=== PATIENT | female | born 1935 | race Caucasian/White ===

== ENCOUNTER 2017-12-22 15:04 | Emergency (ER) | payer MEDICARE ==
[~2017-12-22] VITALS: Ht 162.6 cm; Wt 69.9 kg
[~2017-12-22 15:04] MED LIST: AMBIEN10 MG PO; ASACOL400 MG PO; ASPIRIN81 M1 PO; CALCIUM600 MG PO; CHOLESTYRAMINE L4 GM PO; CLARITIN10 M2 PO; DICYCLOMINE HCL10 MG PO; FLAGYL500 MG PO; LEVOTHYROXINE50 MCG PO; LEXAPRO20 MG PO; LIALDA1.2 GM PO; LIBRAX CAPSULE1 EACH PO; NEXIUM40 MG PO; NIFEDIPINE ER30 M1 PO; PANTOPRAZOLE SO20 MG PO; PRESERVISION T1 EACH PO; RANITIDINE HCL300 MG PO; SIMVASTATIN40 MG PO; SUCRALFATE1 GM PO; TOPROL XL50 MG PO; TRIAMTERENE-HCTZ1 EA PO; TRICOR145 MG PO; VANCOCIN HCL250 MG PO; VITAMIN B-121000 MCG PO; [UNRECOGNIZED DRUG - OTHER] PO
[2017-12-22 17:14] LABS: BILIRUBIN,URINE 1+ (NEGATIVE); CLARITY,URINE CLOUDY (CLEAR); COLOR,URINE YELLOW (YELLOW); KETONES,URINE NEGATIVE (NEGATIVE); LEUKOCYTE ESTERASE ,URINE 2+ (NEGATIVE); NITRITE,URINE NEGATIVE (NEGATIVE); PROTEIN,URINE DIPSTICK 2+ (NEGATIVE); URINE UROBILINOGEN 1 mg/dL (0.2 - 1)
[2017-12-22 17:29] LABS: BACTERIA,URINE MANY /HPF; EPITHELIAL CELLS,URINE MANY /LPF; RBC,URINE 21-50 /HPF (0-5); WBC,URINE (MAN) >50 /HPF (0-5)
[2017-12-22] MEDS ORDERED: KEFLEX500 MG PO (17:51)
== END 2017-12-22 18:11 | disposition home or self-care (01) ==
LOC: ER 15:04
DX: R30.0 Dysuria (principal); N30.90 Cystitis, unspecified without hematuria
CPT/HCPCS: 81001; 87086; 87186; 99283

== ENCOUNTER → 2018-01-31 | Outpatient (CLI) | payer MEDICARE ==
[~2018-01-31] MED LIST changes: +KEFLEX500 MG PO; +SUGAMMADEX SODIUM 200 MG/2 ML VIAL IV ONE
--- NOTE | 2018-01-31 16:26 | Diagnostic Imaging Report ---
Renal ultrasound dated 01/31/2018. History: Urinary tract infection Discussion: Transverse and longitudinal images of the kidneys were obtained demonstrating normal renal sizes and echogenicities. There is no evidence of hydronephrosis, mass, or renal calculus. The right kidney measures 8.5 x 4.5 x 4.1 cm and the left kidney measures 9.0 x 4.7 x 4.6 cm. Right renal cortex measures 1.3 cm and the left renal cortex measures 1.4 cm. There is a lower pole left renal cyst measuring 1.8 x 1.3 x 1.5 cm. The urinary bladder is unremarkable with an estimated prevoid volume of 66.9 cc. There is no evidence of free fluid. IMPRESSION: 1. Small kidneys without evidence of hydronephrosis. 2. Small lower pole left renal cyst. Signed by: Dr. Kirit Loyola DO on 01/31/2018 4:22 PM
--- NOTE | 2018-01-31 16:33 | Diagnostic Imaging Report ---
Abdomen, 2 views dated 01/31/2018. History: Urinary tract infection. Findings: The intestinal gas pattern is nonobstructive. There no masses or abnormal calcifications. Degenerative changes of the spine. IMPRESSION: No acute abdominal abnormality. Signed by: Dr. Kirit Loyola DO on 01/31/2018 4:30 PM
== END ==
LOC: US 14:00
PROVIDERS: ATTEND Urology
DX: N39.0 Urinary tract infection, site not specified (principal)
CPT/HCPCS: 74018; 76770

== ENCOUNTER 2018-06-01 15:12 | Emergency (ER) | payer MEDICARE ==
[~2018-06-01] VITALS: Ht 162.6 cm; Wt 74.8 kg
[~2018-06-01 15:12] MED LIST changes: -SUGAMMADEX SODIUM 200 MG/2 ML VIAL IV ONE
--- OUTSIDE RECORDS SUMMARY | 2018-06-01 15:16 | XMS REPORT | Continuity of Care Document ---
Author Author [facility] Interface Address Unknown Phone Unavailable Problems Problem Status Onset Date Classification Date Reported Comments Source Body mass index 25-29 - overweight 03/19/2018 Diagnosis 03/19/2018 [facility] Dysfunction of eustachian tube 03/19/2018 Diagnosis 03/19/2018 [facility] Postviral cough 03/19/2018 Diagnosis 03/19/2018 [facility] Acute Sinusitis Problem 03/19/2018 [facility] UTI Active Problem 12/22/2017 [facility] Medications Medication Details Route Status Patient Instructions Ordering Provider Order Date Source Cephalexin Monohydrate (Keflex) 500 Mg Capsule Every 6 Hours Active [facility] 12/22/2017 [facility] Cyanocobalamin (Vitamin B-12) 1,000 Mcg Tab, 1000 Mcg Oral Daily Active 08/31/2016 [facility] Pantoprazole Sodium 20 Mg Tablet.dr, 40 Mg Oral Daily Active 08/31/2016 [facility] Cholestyramine (Cholestyramine Light Packet) 4 Gm Pack Every 12 Hours Active [facility] 07/24/2016 [facility] Nifedipine (Nifedipine Er) 30 Mg Tab.er.24 Every 12 Hours Active [facility] 07/24/2016 [facility] Metronidazole (Flagyl) 500 Mg Tablet, 500 Mg Oral Every 8 Hours Active [facility] 07/24/2016 [facility] Vancomycin Hcl (Vancocin Hcl) 250 Mg Capsule, 250 Mg Oral Every 6 Hours Active [facility] 07/24/2016 [facility] Loratadine (Claritin) 10 Mg Capsule, 10 Mg Oral Daily Active 07/18/2016 [facility] Sucralfate 1 Gm Tablet, 1 Gm Oral Three Times A Day Active 07/18/2016 [facility] Sucralfate 1 Gm Tablet, 1 Gm Oral Three Times A Day Active 07/18/2016 [facility] Mesalamine (Asacol) 400 Mg Tablet.dr, 800 Mg Oral Three Times A Day Active 03/13/2015 [facility] Arthrotec Arthrotec 75 Active [facility] Asacol Asacol Active [facility] aspirin aspirin Active [facility] benzonatate 200 MG Oral Capsule benzonatate 200 mg capsule Take 1 capsule 3 times a day by oral route as needed. Active [facility] 12 HR Bupropion Hydrochloride 150 MG Extended Release Oral Tablet bupropion HCl SR 150 mg tablet,12 hr sustained-release Active [facility] calcium calcium Active [facility] Cephalexin 500 MG Oral Capsule cephalexin 500 mg capsule Active [facility] Chlordiazepoxide Hydrochloride 5 MG / Clidinium bromide 2.5 MG Oral Capsule chlordiazepoxide-clidinium 5 mg-2.5 mg capsule Active [facility] Ciprofloxacin 250 MG Oral Tablet ciprofloxacin 250 mg tablet Active [facility] Claritin Claritin Active [facility] Betamethasone 0.5 MG/ML / Clotrimazole 10 MG/ML Topical Cream clotrimazole-betamethasone 1 %-0.05 % topical cream Active [facility] Desonide 0.5 MG/ML Topical Cream desonide 0.05 % topical cream Active [facility] Bentyl dicyclomine Active [facility] Dicyclomine Hydrochloride 20 MG Oral Tablet dicyclomine 20 mg tablet Active [facility] Escitalopram 20 MG Oral Tablet escitalopram 20 mg tablet Active [facility] Fenofibrate 160 MG Oral Tablet fenofibrate 160 mg tablet Active [facility] flunisolide 0.025 MG/ACTUAT Metered Dose Nasal [place] flunisolide 25 mcg (0.025 %) nasal spray Inhale 1-2 sprays in each nostril 1-2 times per day for 3 days then prn nasal congestion Active [facility] Fluticasone propionate 0.05 MG/ACTUAT Metered Dose Nasal [place] fluticasone 50 mcg/actuation nasal spray,suspension [place] 1 spray every day by intranasal route. Active [facility] levothyroxine levothyroxine Active [facility] Levothyroxine Sodium 0.05 MG Oral Tablet levothyroxine 50 mcg tablet Active [facility] Lexapro Lexapro Active [facility] Librax Librax (with clidinium) Active [facility] mesalamine 1200 MG Delayed Release Oral Tablet mesalamine 1.2 gram tablet,delayed release Active [facility] metoprolol succinate metoprolol succinate Active [facility] 24 HR metoprolol succinate 50 MG Extended Release Oral Tablet metoprolol succinate ER 50 mg tablet,extended release 24 hr Active [facility] Miralax Miralax Active [facility] 24 HR mirabegron 50 MG Extended Release Oral Tablet [Myrbetriq] Myrbetriq 50 mg tablet,extended release Active [facility] Nasonex Nasonex Active [facility] Nexium Nexium Active [facility] NITROFURANTOIN, MACROCRYSTALS 100 MG Oral Capsule nitrofurantoin macrocrystal 100 mg capsule Active [facility] NITROFURANTOIN, MACROCRYSTALS 25 MG / Nitrofurantoin, Monohydrate 75 MG Oral Capsule nitrofurantoin monohydrate/macrocrystals 100 mg capsule Active [facility] olopatadine 2 MG/ML Ophthalmic Solution olopatadine 0.2 % eye drops INSTILL 1 DROP IN BOTH EYES DAILY Active [facility] Albuterol 0.09 MG/ACTUAT Metered Dose Inhaler ProAir HFA 90 mcg/actuation aerosol inhaler TAKE 2 PUFFS BY MOUTH EVERY 4 HOURS NEEDED Active [facility] Probiotic Formula Probiotic Formula Active [facility] Ranitidine 150 MG Oral Tablet ranitidine 150 mg tablet Active [facility] simvastatin simvastatin Active [facility] Simvastatin 40 MG Oral Tablet simvastatin 40 mg tablet Active [facility] Carafate sucralfate Active [facility] Sulfamethoxazole 400 MG / Trimethoprim 80 MG Oral Tablet sulfamethoxazole 400 mg-trimethoprim 80 mg tablet Active [facility] tramadol hydrochloride 50 MG Oral Tablet tramadol 50 mg tablet Active [facility] Hydrochlorothiazide 25 MG / Triamterene 37.5 MG Oral Capsule triamterene 37.5 mg-hydrochlorothiazide 25 mg capsule Active [facility] Hydrochlorothiazide 25 MG / Triamterene 37.5 MG Oral Tablet triamterene 37.5 mg-hydrochlorothiazide 25 mg tablet Active [facility] Tricor Tricor Active [facility] Ergocalciferol 67987 UNT Oral Capsule Vitamin D2 50,000 unit capsule Active [facility] Aspirin 81 Mg Tablet Daily Active [facility] Beta Carotene (Preservision Tablet) 1 Each Tab Daily Active [facility] Calcium Carbonate (Calcium) 600 Mg Tablet Daily Active [facility] Chlordiazepoxide/Clidinium Br (Librax Capsule) 1 Each Capsule As Needed Active [facility] Dicyclomine Hcl 10 Mg Capsule Twice A Day Active [facility] Escitalopram Oxalate (Lexapro) 20 Mg Tablet Daily Active [facility] Esomeprazole Magnesium (Nexium) 40 Mg Capsule.dr Daily Active [facility] Fenofibrate (Tricor) 145 Mg Tab Daily Active [facility] Gasex Three Times A Day Active [facility] Levothyroxine Sodium 50 Mcg Tablet Daily Active [facility] Mesalamine (Lialda) 1.2 Gm Tablet. Four Times Daily Active [facility] Metoprolol Succinate (Toprol Xl) 50 Mg Tab.er.24h Daily Active [facility] Ranitidine Hcl 300 Mg Tablet Bedtime Active [facility] Simvastatin 40 Mg Tablet Daily Active [facility] Triamterene/Hctz (Triamterene-Hctz 37.5-25 Mg Tb) 1 Ea Tab Daily Active [facility] Zolpidem Tartrate (Ambien) 10 Mg Tablet Bedtime as needed for Insomnia Active [facility] Allergies, Adverse Reactions, Alerts Substance Category Reaction Severity Reaction type Status Date Reported Comments Source Levaquin Allergy to substance 03/15/2009 [facility] Zestril Allergy to substance 03/15/2009 [facility] Iodine RASH Unknown Allergy to Substance Active 12/22/2017 [facility] Lisinopril HIVES Unknown Allergy to Substance Active 12/22/2017 [facility] Levofloxacin SWOLLEN LIPS Unknown Allergy to Substance Active 12/22/2017 [facility] Immunizations Immunization Date Given Site Status Last Updated Comments Source Results Order Name Results Value Reference Range Date Interpretation Comments Source Automated urine sediment leukocyte count by microscopy (number/high power field) Automated urine sediment leukocyte count by microscopy (number/high power field) null 0 - 5 12/22/2017 [facility] Bacteria detection in urine sediment by light microscopy Bacteria detection in urine sediment by light microscopy MANY NONE 12/22/2017 [facility] Epithelial cells detection in urine sediment by light microscopy Epithelial cells detection in urine sediment by light microscopy MANY NONE 12/22/2017 [facility] Erythrocytes detection in urine sediment by light microscopy Erythrocytes detection in urine sediment by light microscopy null 0 - 5 12/22/2017 [facility] Specific gravity of Urine by Test strip Specific gravity of Urine by Test strip 1.025 1.010 - 1.025 12/22/2017 [facility] Urine clarity Urine clarity CLOUDY CLEAR 12/22/2017 [facility] Urine color determination Urine color determination YELLOW YELLOW 12/22/2017 [facility] Urine erythrocytes detection Urine erythrocytes detection 4+ NEGATIVE 12/22/2017 [facility] Urine glucose detection Urine glucose detection NEGATIVE NEGATIVE 12/22/2017 [facility] Urine ketones detection by automated test strip Urine ketones detection by automated test strip NEGATIVE NEGATIVE 12/22/2017 [facility] Urine leukocyte esterase detection by dipstick Urine leukocyte esterase detection by dipstick 2+ NEGATIVE 12/22/2017 [facility] Urine nitrite detection Urine nitrite detection NEGATIVE NEGATIVE 12/22/2017 [facility] Urine pH measurement by automated test strip Urine pH measurement by automated test strip 6 5 - 7 12/22/2017 [facility] Urine protein measurement by test strip (mass/volume) Urine protein measurement by test strip (mass/volume) 2+ NEGATIVE 12/22/2017 [facility] Urine total bilirubin measurement (mass/volume) Urine total bilirubin measurement (mass/volume) 1+ NEGATIVE 12/22/2017 [facility] Urine urobilinogen measurement by test strip (mass/volume) Urine urobilinogen measurement by test strip (mass/volume) 1 0.2 - 1 12/22/2017 [facility] Vital Signs Vital Sign Value Date Comments Source Diastolic (mm Hg) 74 03/19/2018 [facility] Height 64 03/19/2018 [facility] Systolic (mm Hg) 112 03/19/2018 [facility] Weight 165 03/19/2018 [facility] Encounters Location Location Details Encounter Type Encounter Number Reason For Visit Attending Provider ADM Date DC Date Status Source Departed Emergency Room [id number] MARCELL MEJÍA MD 12/22/2017 12/22/2017 [facility] [place] - [facility] - [id number] Dempsey, MARIAMA-C: [address] [place] [address], Ph. [id number] Yue Dempsey 03/19/2018 [facility] Procedures Procedure Code Date Perfomer Comments Source
--- OUTSIDE RECORDS SUMMARY | 2018-06-01 15:16 | XMS REPORT | Encounter Summary ---
Author Organization Unknown Address [address] [place] [id number] Phone [phone] Care Team Providers Care Respiratory Therapist Name Role Phone [facility] 3 [phone] Reason for Visit Medical Complaint Instructions 1. Postviral cough benzonatate 200 mg capsule cough: care instructions viral respiratory infection: care instructions 2. Dysfunction of eustachian tube eustachian tube problems: care instructions fluticasone 50 mcg/actuation nasal spray,suspension 3. Body mass index 25-29 - overweight learning about healthy weight Discussion Note: None recorded. Plan of Care Patient Instructions The eustachian (say "jna-[id number]-[id number]") tubes run between the inside of the ears and the throat. They keep air pressure stable in the ears. If your eustachian tubes become blocked, the air pressure in your ears changes. The fluids from a cold can clog eustachian tubes, causing pain in the ears. A quick change in air pressure can cause eustachian tubes to close up. This might happen when an airplane changes altitude or when a router operator radial goes up or down underwater. Eustachian tube problems often clear up on their own or after antibiotic treatment. If your tubes continue to be blocked, you may need surgery. Follow-up care is a mckinney part of your treatment and safety. Be sure to make and go to all appointments, and call your doctor if you are having problems. It's also a good idea to know your test results and keep a list of the medicines you take. How can you care for yourself at home? To ease ear pain, apply a warm washcloth or a heating pad set on low. There may be some drainage from the ear when the heat melts earwax. Put a cloth between the heat source and your skin. Do not use a heating pad with children. If your doctor prescribed antibiotics, take them as directed. Do not stop taking them just because you feel better. You need to take the full course of antibiotics. Your doctor may recommend cauy-[id number] medicine. Be safe with medicines. Oral or nasal decongestants may relieve ear pain. Avoid decongestants that are combined with antihistamines, which tend to cause more blockage. But if allergies seem to be the problem, your doctor may recommend a combination. Be careful with cough and cold medicines. Don't give them to children younger than 6, because they don't work for children that age and can even be harmful. For children 6 and older, always follow all the instructions carefully. Make sure you know how much medicine to give and how long to use it. And use the dosing device if one is included. When should you call for help? Call your doctor now or seek immediate medical care if: You develop sudden, complete hearing loss. You have severe pain or feel dizzy. You have new or increasing pus or blood draining from your ear. You have redness, swelling, or pain around or behind the ear. Watch closely for changes in your health, and be sure to contact your doctor if: You do not get better after 2 weeks. You have any new symptoms, such as itching or a feeling of fullness in the ear. Reminders Provider Appointments None recorded. Lab None recorded. Referral None recorded. Procedures None recorded. Surgeries None recorded. Imaging None recorded. Medications Name Start Date Arthrotec 75 Asacol aspirin benzonatate 200 mg capsule Take 1 capsule 3 times a day by oral route as needed. bupropion HCl SR 150 mg tablet,12 hr sustained-release calcium cephalexin 500 mg capsule chlordiazepoxide-clidinium 5 mg-2.5 mg capsule ciprofloxacin 250 mg tablet Claritin clotrimazole-betamethasone 1 %-0.05 % topical cream desonide 0.05 % topical cream dicyclomine dicyclomine 20 mg tablet escitalopram 20 mg tablet fenofibrate 160 mg tablet flunisolide 25 mcg (0.025 %) nasal spray Inhale 1-2 sprays in each nostril 1-2 times per day for 3 days then prn nasal congestion fluticasone 50 mcg/actuation nasal spray,suspension [place] 1 spray every day by intranasal route. levothyroxine levothyroxine 50 mcg tablet Lexapro Librax (with clidinium) mesalamine 1.2 gram tablet,delayed release metoprolol succinate metoprolol succinate ER 50 mg tablet,extended release 24 hr Miralax Myrbetriq 50 mg tablet,extended release Nasonex Nexium nitrofurantoin macrocrystal 100 mg capsule nitrofurantoin monohydrate/macrocrystals 100 mg capsule olopatadine 0.2 % eye drops INSTILL 1 DROP IN BOTH EYES DAILY ProAir HFA 90 mcg/actuation aerosol inhaler TAKE 2 PUFFS BY MOUTH EVERY 4 HOURS NEEDED Probiotic Formula ranitidine 150 mg tablet simvastatin simvastatin 40 mg tablet sucralfate sulfamethoxazole 400 mg-trimethoprim 80 mg tablet tramadol 50 mg tablet triamterene 37.5 mg-hydrochlorothiazide 25 mg capsule triamterene 37.5 mg-hydrochlorothiazide 25 mg tablet Tricor Vitamin D2 50,000 unit capsule Medications Administered None recorded. Vitals Height Weight BMI Blood Pressure 5 ft 4 in 165 lbs 28.3 kg/m2 112/74 mm[Hg] Lab Results None recorded. Allergies Code Code System Name Reaction Severity Status Onset 5933 RxNorm Iodine Active 616755 RxNorm Levaquin Active 487753 RxNorm Zestril Active Problems Name Status Onset Date Source Acute Sinusitis Active Encounter Procedures None recorded. Vaccine List None recorded. Social History Smoking Status Never Smoker Past Encounters 03/19/2018 Postviral Cough; Dysfunction of Eustachian Tube; Body Mass Index 25-29 - Overweight Yue Dempsey [employer]-[facility]: [address] [place] [address], Ph. History of Present Illness Cough Reported By: Patient HPI: Location: chest. Quality: productive cough. Duration: 4 days. Severity: moderate. Onset/Timing: gradual. Context: no sick contacts, no foreign travel, non- smoker. Associated Symptoms: no sputum production, no shortness of breath, no wheezing, no sweats, no significant weight gain, no significant weight loss, no sore throat, no vomiting, no diarrhea, no rash, no nausea, no fever/chills, no muscle aches, no headache, morning cough Review of Systems:ROS as noted in the HPI Review of Systems Basic Reported By: Patient Physical Exam Adult Basic, Adult Female Complete Reported By: Patient Constitutional: General Appearance: healthy-appearing, well-nourished, well-developed. Level of Distress: NAD. Ambulation: ambulating normally Psychiatric: Mental Status: active and alert. Orientation: to time, to place, to person [id number]-[id number]-Wutjh-Throat: Ears: no lesions on external ear, no outer ear tenderness, EACs clear, TMs clear, middle ear fluid. Hearing: no hearing loss. Nose: no lesions on external nose, nares patent, no septal deviation, nasal passages clear, no sinus tenderness, no nasal discharge. Lips, Teeth, and Gums: no mouth or lip ulcers, no bleeding gums, normal dentition. Oropharynx: moist mucous membranes, no erythema, no exudates, tonsils not enlarged Lungs: Respiratory effort: no dyspnea, no tachypnea, no use of accessory muscles, no intercostal retractions. Auscultation: breath sounds normal Cardiovascular: Heart Auscultation: RRR, no murmurs
--- OUTSIDE RECORDS SUMMARY | 2018-06-01 15:16 | XMS REPORT | Encounter Summary ---
Author Organization Unknown Address [address] [place] [address] Phone [phone] Care Team Providers Care Stationary Steam Engineer Name Role Phone Dr. Angelita Vivas 3 [phone] Lacey Mcadams 62 [phone] Trent Medina MD 107 [phone] Cristian Abarca MD 111 [phone] Sandor Stinson MD 115 [phone] Reason for Visit Major depressive disorder; Hypothyroidism; Hyperlipidemia; Gastroesophageal reflux disease; Hypertensive disorder; Irritable bowel syndrome; Bilateral shoulder pain; cough / congestion Instructions 1. Upper respiratory infection Zithromax Z-Vinod 250 mg tablet 2. Allergic rhinitis montelukast 10 mg tablet Kenalog 40 mg/mL suspension for injection Cheratussin AC 10 mg-100 mg/5 mL oral liquid 3. Osteoarthritis tramadol 50 mg tablet handicap placard 4. Major depressive disorder 5. Irritable bowel syndrome 6. Gastroesophageal reflux disease ranitidine 150 mg tablet 7. Hypothyroidism 8. Hyperlipidemia high cholesterol: care instructions 9. Hypertensive disorder 10. Screening for osteoporosis bone density 11. Body mass index 25-29 - overweight learning about healthy weight 12. At risk for falls preventing falls: care instructions 13. Alcohol consumption screening learning about alcohol misuse 14. Alcohol intake above recommended sensible limits alcohol and drug problems: care instructions 15. Depression screening learning about depression Discussion Note: None recorded. Plan of Care Patient Goals Patient Target Alcohol intake None Handling Urges to drink Remind yourself of your reasons for making a change Talk it through with someone you trust Distract yourself with a healthy, alternative activity Challenge the thought that drives the urge Ride it out without giving in Leave high-risk situations quickly and gracefully Reminders Provider Appointments Return to Office on or around 08/24/2018 Gerardo Sher MD Lab None recorded. Referral None recorded. Procedures None recorded. Surgeries None recorded. Imaging Bone Density 05/23/2018 Medications Name Start Date Aspir-81 QD calcium TAKE ONE TABLET BY MOUTH TWICE A DAY Cheratussin AC 10 mg-100 mg/5 mL oral liquid Take 10 mL every 8 hours by oral route as needed for 5 days. chlordiazepoxide-clidinium 5 mg-2.5 mg capsule TAKE ONE CAPSULE BY MOUTH ONCE A DAY NEEDED Claritin QD clotrimazole-betamethasone 1 %-0.05 % topical cream APPLY TO THE AFFECTED AND SURROUNDING AREAS OF SKIN BY TOPICAL ROUTE 2 TIMES PER DAY IN THE MORNING AND EVENING FOR 2 WEEKS desonide 0.05 % topical cream APPLY SPARINGLY AND RUB GENTLY INTO THE AFFECTED AREA(S) BY TOPICAL ROUTE 2 TIMES PER DAY FOR 10 DAYS dicyclomine 20 mg tablet Take 1 tablet twice a day by oral route as directed for 90 days. escitalopram 20 mg tablet TAKE 1 TABLET BY MOUTH EVERY DAY fenofibrate 160 mg tablet TAKE 1 TABLET BY MOUTH EVERY DAY fluticasone propionate 50 mcg/actuation nasal spray,suspension Gas-X BID Kenalog 40 mg/mL suspension for injection Take 1 mL by injection route. levothyroxine 50 mcg tablet TAKE 1 TABLET BY MOUTH ONCE A DAY mesalamine 1.2 gram tablet,delayed release Take 2 tablets twice a day by oral route. metoprolol succinate ER 50 mg tablet,extended release 24 hr TAKE 1 TABLET BY MOUTH EVERY DAY montelukast 10 mg tablet Take 1 tablet every day by oral route as directed for 30 days. Myrbetriq 50 mg tablet,extended release Take 1 tablet every day by oral route. Nexium 24HR 20 mg tablet,delayed release Take 2 tablets every day by oral route. nitrofurantoin macrocrystal 100 mg capsule Take 1 capsule every day by oral route as directed for 30 days. olopatadine 0.2 % eye drops 1 drop 3 times a week prn PreserVision AREDS BID ProAir HFA 90 mcg/actuation aerosol inhaler Inhale 2 puffs every 4 hours by inhalation route as needed. ranitidine 150 mg tablet Take 1 tablet every day by oral route for 90 days. simvastatin 40 mg tablet TAKE 1 TABLET BY MOUTH EVERY DAY tramadol 50 mg tablet Take 1 tablet every day by oral route as needed. triamterene 37.5 mg-hydrochlorothiazide 25 mg tablet TAKE 1 TABLET BY MOUTH EVERY DAY Tylenol PRN Vitamin D2 50,000 unit capsule TAKE ONE CAPSULE BY MOUTH ONE TIME PER WEEK Zithromax Z-Vinod 250 mg tablet TAKE 2 TABLETS (500 MG) BY ORAL ROUTE ONCE DAILY FOR 1 DAY THEN 1 TABLET (250 MG) BY ORAL ROUTE ONCE DAILY FOR 4 DAYS Medications Administered Name Date Kenalog 40 mg/mL suspension for injection Take 1 mL by injection route. 0301-51-83A56:50:00 Vitals Height Weight BMI Blood Pressure 5 ft 2.3 in 165.2 lbs 29.9 kg/m2 (1) 170/70 mm[Hg] (2) 138/76 mm[Hg] Lab Results None recorded. Allergies Code Code System Name Reaction Severity Status Onset 5933 RxNorm Iodine Hives Active 984009 RxNorm Levaquin Hives Active 411877 RxNorm Zestril Hives Active Problems Name Status Onset Date Source Hypothyroidism Active 07/27/2016 Hyperlipidemia Active 07/27/2016 Major Depressive Disorder Active 07/27/2016 Hypertensive Disorder Active 07/27/2016 Cardiac Arrhythmia Active 07/27/2016 Gastroesophageal Reflux Disease Active 07/27/2016 Chronic Ischemic Colitis Active 07/27/2016 Irritable Bowel Syndrome Active 07/27/2016 Age Related Macular Degeneration Active 03/01/2018 Procedures Date Name Performed by 03/14/2012 Colonoscopy Information not available Tubal Ligation Information not available Tonsillectomy Information not available 05/23/2018 Bone Density Information not available Vaccine List Vaccine Type influenza, high dose seasonal 01/30/20160.5 mL 12/06/20160.5 mL 11/25/20170.5 mL influenza, unspecified formulation 03/14/2014 pneumococcal conjugate PCV 13 12/06/20160.5 mL pneumococcal polysaccharide PPV23 12/20/2014 zoster 03/14/2013 Social History Smoking Status Former Smoker Past Encounters 05/23/2018 Upper Respiratory Infection; Allergic Rhinitis; Osteoarthritis; Major Depressive Disorder; Irritable Bowel Syndrome; Gastroesophageal Reflux Disease; Hypothyroidism; Hyperlipidemia; Hypertensive Disorder; Screening for Osteoporosis; Body Mass Index 25-29 - Overweight; At Risk for Falls; Alcohol Consumption Screening; Alcohol Intake above Recommended Sensible Limits; Depression Screening Gerardo Sher MD: [address] [place] [address], Ph. History of Present Illness Chronic Pain Follow-up Reported By: Patient HPI: Analgesia: taking pain medication, percentage of pain relief: 70 %. Pain Severity: average pain: 4/10, worst pain: 10/10. ADL Improvements: physically functioning, able to maintain relationships, mood unaffected, sleep patterns undisturbed, overall function improved. Adverse Reactions: no nausea, no vomiting, no constipation, no itching, no mental cloudiness, no sweating, no fatigue, no drowsiness, no sexual dysfunction Note:F/u on chronic conditions. Hx of OA in multiple joints taking tramadol daily as needed. HTN: not checking BPs at home. HLD: denies myalgias with fenofibrate or simvastatin.<div>Dry cough since 3 days ago. Concomitantly, wheezing and nasal congestion. Denies fever or sore throat.</div> Review of Systems:ROS as noted in the HPI Review of Systems None recorded. Physical Exam General Adult Exam (male) Reported By: Patient Constitutional: General Appearance: healthy-appearing, overweight. Level of Distress: NAD. Ambulation: ambulation with cane Psychiatric: Insight: good judgement. Mental Status: active and alert, normal mood, normal affect. Orientation: to time, to place, to person Eyes: Lids and Conjunctivae: non-injected, no discharge. Pupils: PERRLA. EOM: EOMI. Sclerae: non-icteric ENMT: Ears: TMs clear. Nose: nares non-patent, nasal discharge, post nasal drip. Oropharynx: no exudates, erythema, tonsils absent Neck: Neck: supple, trachea midline. Lymph Nodes: cervical LAD. Thyroid: no enlargement, non-tender Lungs: Auscultation: breath sounds normal Cardiovascular: Heart Auscultation: RRR, normal S1, normal S2, no murmurs. Neck vessels: no carotid bruits Musculoskeletal:: Motor Strength and Tone: normal, normal tone. Joints, Bones, and Muscles: tenderness Skin: Inspection and palpation: ; Ecchymoses in forearms Back: Thoracolumbar Appearance: ; Tenderness in the lumbar spine. Normal ROM
--- OUTSIDE RECORDS SUMMARY | 2018-06-01 15:16 | XMS REPORT ---
Author Author [facility] Address Unknown Phone Unavailable Care Team Providers Care Green Hide Inspector Name Role Phone CARMEN BEDOLLA Unavailable Unavailable Problems This patient has no known problems. Allergies, Adverse Reactions, Alerts This patient has no known allergies or adverse reactions. Medications This patient has no known medications. Results Test Description Test Time Test Comments Text Results Atomic Results Result Comments ABDOMEN-1VIEW (KU) 2018-01-31 16:27:00 [place] [address] Patient Name: SOSA DENTON MR #: [id number] : 1935 Age/Sex: 82/F Req #: [id number] Adm Physician: Ordered by: CARMEN BEDOLLA MD Report #: [id number] Location: US Room/Bed: Procedure: [id number] DX/ABDOMEN-1VIEW (KUB) Exam Date: 01/31/18 Exam Time: 1415 REPORT STATUS: Signed Abdomen, 2 views dated 01/31/2018. History: Urina ry tract infection. Findings: The intestinal gas pattern is nonobstructive. There no masses or abnormal calcifications. Degenerative changes of the spine. IMPRESSION: No acute abdominal abnormality. Signed by: Dr. Macey Loyola DO on 01/31/2018 4:30 PM Dictated By: MACEY LOYOLA DO 1630 Transcribed By: BJ on 01/31/18 1630 COPY TO: CARMEN BEDOLLA MD US RENAL RETROPERITONEAL COMP 2018-01-31 16:19:00 [place] [address] Patient Name: SOSA DENTON MR #: [id number] : 1935 Age/Sex: 82/F Req #: [id number] [facility] Physician: Ordered by: CARMEN BEDOLLA MD Report #: [id number] Location: US Room/Bed: Procedure: [id number] US/US RENAL RETROPERITONEAL COMP Exam Date: 01/31/18 Exam Time: 1504 REPORT STATUS: Signed Renal ultrasound dated 01/31/2018. History: Urinary tract infection Discussion: Transverse and longitudinal images of the kidneys were obtained demonstrating normal renal sizes and echogenicities. There is no evidence of hydronephrosis, mass, or renal calculus. The right kidney measures 8.5 x 4.5 x 4.1 cm and the left kidney measures 9.0 x 4.7 x 4.6 cm. Right renal cortex measures 1.3 cm and the left renal cortex measures 1.4 cm. There is a lower pole left renal cyst measuring 1.8 x 1.3 x 1.5 cm. The urinary bladder is unremarkable with an estimated prevoid volume of 66.9 cc. There is no evidence of free fluid. IMPRESSION: 1. Small kidneys without evidence of hydronephrosis. 2. Small lower pole left renal cyst. Signed by: Dr. Macey Loyola DO on 01/31/2018 4:22 PM Dictated By: MACEY LOYOLA DO 1622 Transcribed By: BJ on 01/31/18 1622 COPY TO: CARMEN BEDOLLA MD
[2018-06-01] MEDS ORDERED: SODIUM CHLORIDE 0.9% 1000ML 1,000 ML IV SCH (16:00)
--- NOTE | 2018-06-01 16:30 | Diagnostic Imaging Report ---
Frontal and lateral views of the chest. HISTORY: Weak, vomiting, cough COMPARISON: None available. DISCUSSION: Lungs: Low lung volumes result in bibasilar vascular crowding, accentuation of the pulmonary interstitial markings, central pulmonary vasculature, and the cardiac silhouette. Allowing for these limitations, the findings are as follows: Mild prominence of the peribronchial interstitial markings. No evidence of a consolidative pneumonia or pulmonary alveolar edema. Pleura: No pleural effusion or pneumothorax. Heart and mediastinum: The cardiomediastinal silhouette appears unremarkable. Bones and soft tissues: Appear unremarkable. IMPRESSION: 1. Findings which could be seen in the setting of a nonspecific bronchitis. 2. No consolidative pneumonia. Signed by: Dr. Elias Malave D.O., M.M.M. on 06/01/2018 4:27 PM
[2018-06-01 17:29] VITALS: BP 175/86
== END 2018-06-01 17:31 | disposition home or self-care (01) ==
LOC: FSED 15:12
DX: R05 Cough (principal); J20.8 Acute bronchitis due to other specified organisms; R53.83 Other fatigue; I10 Essential (primary) hypertension; E78.00 Pure hypercholesterolemia, unspecified; F41.9 Anxiety disorder, unspecified
CPT/HCPCS: 71046; 80053; 81003; 84484; 85025; 99283

== ENCOUNTER 2020-07-27 12:06 | Emergency (ER) | payer OTHER, MEDICARE ==
[~2020-07-27] VITALS: Ht 160 cm; Wt 78.2 kg
[2020-07-27] MEDS ORDERED: CLARITIN10 MG PO (12:53)
[2020-07-27] MEDS ORDERED: VITAMIN B COMP1 EAC1 (12:53)
[2020-07-27] MEDS ORDERED: NITROFURANTOIN100 MG PO (12:53)
[2020-07-27] MEDS ORDERED: MYRBETRIQ50 MG (12:53)
[2020-07-27] MEDS ORDERED: NEURONTIN300 MG PO (12:53)
[2020-07-27] MEDS ORDERED: FEROSUL325 MG PO (12:53)
[2020-07-27] MEDS ORDERED: ULTRAM50 MG PO (12:53)
[2020-07-27] MEDS ORDERED: FERROUS SULFAT324 MG PO (12:53)
[2020-07-27] MEDS ORDERED: LIDOCAINE 1% W/EPINEPHRINE 20 ML VIAL ONE (13:24)
[2020-07-27] MEDS ORDERED: LIDOCAINE HCL 1% LOCAL INJ 20 ML VIAL ONE (13:24)
[2020-07-27] MEDS ORDERED: BACITRACIN ZINC 0.9GM TP ONE (13:24)
[2020-07-27] MEDS ORDERED: ULTRAM 50MG50 MG PO (14:52)
[2020-07-27 15:22] VITALS: BP 192/83
[2020-07-27] MEDS ORDERED: PENICILLIN V P500 MG PO (19:27)
== END 2020-07-27 15:16 | disposition home or self-care (01) ==
LOC: FSED 12:31
DX: S01.81XA Laceration without foreign body of other part of head, initial encounter (principal); S51.801A Unspecified open wound of right forearm, initial encounter; W01.198A Fall on same level from slipping, tripping and stumbling with subsequent striking against other object, initial encounter; Y93.01 Activity, walking, marching and hiking; Y92.002 Bathroom of unspecified non-institutional (private) residence as the place of occurrence of the external cause; I10 Essential (primary) hypertension; E03.9 Hypothyroidism, unspecified; E78.5 Hyperlipidemia, unspecified; F41.9 Anxiety disorder, unspecified; H35.30 Unspecified macular degeneration
CPT/HCPCS: 12011; 99283; J2001

== ENCOUNTER 2020-12-13 16:18 | Emergency (ER) | payer MEDICARE, OTHER ==
[~2020-12-13] VITALS: Ht 160 cm; Wt 78.0 kg
[~2020-12-13 16:18] MED LIST changes: +CLARITIN10 MG PO; +FEROSUL325 MG PO; +FERROUS SULFAT324 MG PO; +MYRBETRIQ50 MG; +NEURONTIN300 MG PO; +NITROFURANTOIN100 MG PO; +PENICILLIN V P500 MG PO; +ULTRAM 50MG50 MG PO; +ULTRAM50 MG PO; +VITAMIN B COMP1 EAC1
[2020-12-13] MEDS ORDERED: CEPHALEXIN500 MG PO (17:59)
== END 2020-12-13 18:31 | disposition home or self-care (01) ==
LOC: FSED 16:54
DX: S51.802A Unspecified open wound of left forearm, initial encounter (principal); W01.0XXA Fall on same level from slipping, tripping and stumbling without subsequent striking against object, initial encounter; Y93.01 Activity, walking, marching and hiking; I10 Essential (primary) hypertension; E03.9 Hypothyroidism, unspecified; K21.9 Gastro-esophageal reflux disease without esophagitis; F41.9 Anxiety disorder, unspecified; E78.5 Hyperlipidemia, unspecified; H35.30 Unspecified macular degeneration
CPT/HCPCS: 99284

== ENCOUNTER 2021-02-15 14:41 | Emergency (ER) | payer MEDICARE ==
[~2021-02-15] VITALS: Ht 160 cm; Wt 78.0 kg
[~2021-02-15 14:41] MED LIST changes: +CEPHALEXIN500 MG PO
[2021-02-15] MEDS ORDERED: THERAFLU FLU &1 EAC1 PO (15:22)
[2021-02-15] MEDS ORDERED: LORATADINE10 MG PO (15:22)
[2021-02-15] MEDS ORDERED: ZITHROMAX250 MG PO (15:22)
== END 2021-02-15 16:20 | disposition home or self-care (01) ==
LOC: FSED 15:07
DX: R05.9 Cough, unspecified (principal); J40 Bronchitis, not specified as acute or chronic; J06.9 Acute upper respiratory infection, unspecified; J31.0 Chronic rhinitis
CPT/HCPCS: 71046; 83518; 87400; 99282

== ENCOUNTER → 2021-04-09 | Outpatient (CLI) | payer MEDICARE ==
[~2021-04-09] MED LIST changes: +LORATADINE10 MG PO; +THERAFLU FLU &1 EAC1 PO; +ZITHROMAX250 MG PO
== END ==
LOC: US 14:18
PROVIDERS: ATTEND Urology
DX: N39.0 Urinary tract infection, site not specified (principal)
CPT/HCPCS: 74018; 76770

== ENCOUNTER 2021-06-24 14:48 | Observation (INO) | payer MEDICARE ==
[~2021-06-24] VITALS: Ht 152.4 cm; Wt 77.1 kg
[2021-06-24] MEDS ORDERED: SODIUM CHLORIDE 0.9% 1000ML 1,000 ML IV ONE (15:30)
[2021-06-24] MEDS ORDERED: ONDANSETRON HCL INJ 2MG/ML 2ML 2 MG/ML VIAL IV PRN ×2 (15:30→17:00)
[2021-06-24 15:34] LABS: BASOPHILS % 0.3 % (0.0-1.0); HEMATOCRIT 31.5 % (34.2-44.1); HEMOGLOBIN 10.1 g/dL (12.0-16.0); LYMPHOCYTES # (AUTO) 0.8 (1.0-3.2); LYMPHOCYTES % 12.1 % (18.0-39.1); MEAN CORPUSCULAR HEMOGLOBIN 31.3 pg (28-32); MEAN CORPUSCULAR HGB CONC 32.1 g/dL (31-35); MEAN CORPUSCULAR VOLUME 97.5 fL (81-99); MONOCYTES # (AUTO) 0.6 (0.2-0.8); MONOCYTES % 9.9 % (4.4-11.3); NEUTROPHILS # (AUTO) 4.8 (2.1-6.9); NEUTROPHILS % 76.9 % (38.7-80.0); PLATELET COUNT 168 x10e3/uL (140-360); RED BLOOD COUNT 3.23 x10e6/uL (3.6-5.1); RED CELL DISTRIBUTION WIDTH 13.3 % (11.7-14.4)
[2021-06-24 15:38] LABS: INR 1.12; PROTHROMBIN TIME 15.4 seconds (11.9-14.5)
[2021-06-24 15:46] LABS: ALBUMIN 2.9 g/dL (3.5-5.0); ALBUMIN/GLOBULIN RATIO 0.6 (0.8-2.0); ANION GAP 11.8 mmol/L (8-16); CALCIUM 8.4 mg/dL (8.4-10.2); CREATININE, SERUM 0.73 mg/dL (0.57-1.11); POTASSIUM 3.8 mmol/L (3.5-5.1)
[2021-06-24] MEDS ORDERED: SODIUM CHLORIDE 0.9% 1000ML 1,000 ML IV SCH (17:00)
[2021-06-24] MEDS ORDERED: HYDROCODONE/APAP 5MG-325MG TAB PO ONE (17:30)
[2021-06-24] MEDS ORDERED: CEFTRIAXONE 1 GM VIAL ONE (17:50)
[2021-06-24] MEDS: CEFTRIAXONE 1 GM in SODIUM CHLORIDE 0.9% 50ML 50 ML IV SCH (17:55)
[2021-06-24] MEDS: HYDRALAZINE HCL 20 MG/ML VIAL IV PRN ×2 (17:56→22:44)
[2021-06-24 19:05] LABS: CLARITY,URINE CLOUDY (CLEAR); COLOR,URINE YELLOW (YELLOW); KETONES,URINE NEGATIVE (NEGATIVE); LEUKOCYTE ESTERASE ,URINE NEGATIVE (NEGATIVE); NITRITE,URINE POSITIVE (NEGATIVE); PROTEIN,URINE DIPSTICK NEGATIVE (NEGATIVE); URINE UROBILINOGEN 0.2 mg/dL (0.2 - 1)
[2021-06-24 19:20] LABS: BACTERIA,URINE MANY /HPF; EPITHELIAL CELLS,URINE FEW /LPF; RBC,URINE 0-5 /HPF (0-5); WBC,URINE (MAN) >50 /HPF (0-5)
[2021-06-24 19:48] LABS: HEMATOCRIT 29.8 % (34.2-44.1); HEMOGLOBIN 9.7 g/dL (12.0-16.0)
[2021-06-24 20:00] VITALS: BP 185/64
[2021-06-24 20:50] VITALS: BP 185/64
[2021-06-24] MEDS: HYDROCODONE/APAP 5MG-325MG TAB PO PRN (21:25)
[2021-06-24] MEDS ORDERED: PREGABALIN 25 MG CAP PO SCH (21:45)
[2021-06-24] MEDS ORDERED: DIPHENHYDRAMINE HCL INJ 50 MG/ML VIAL IV ONE (23:15)
[2021-06-24 23:24] VITALS: BP 185/64
[2021-06-25] VITALS (9 sets, daily range): BP systolic 147–197; BP diastolic 59–69
[2021-06-25 00:33] LABS: HEMATOCRIT 35.2 % (34.2-44.1); HEMOGLOBIN 10.6 g/dL (12.0-16.0)
[2021-06-25] MEDS: HYDROCODONE/APAP 5MG-325MG TAB PO PRN ×2 (02:15→15:44)
[2021-06-25 04:54] LABS: HEMATOCRIT 32.3 % (34.2-44.1); HEMOGLOBIN 10.2 g/dL (12.0-16.0)
[2021-06-25] MEDS ORDERED: LEVOTHYROXINE SODIUM 50 MCG TAB PO SCH (06:00)
[2021-06-25] MEDS ORDERED: METHYLPREDNISOLONE SOD SUCC 125 MG/2ML VIAL IV ONE (06:00)
[2021-06-25] MEDS: DIPHENHYDRAMINE HCL INJ 50 MG/ML VIAL IV PRN ×2 (06:11→12:40)
[2021-06-25 07:58] LABS: FERRITIN 225.76 ng/mL (4.63-204.00); THYROID STIMULATING HORMONE 7.753 uIU/mL (0.350-4.940)
[2021-06-25] MEDS ORDERED: ASPIRIN 81 MG CHEW TAB PO SCH (09:00)
[2021-06-25] MEDS ORDERED: METOPROLOL SUCCINATE 50 MG TAB XL PO SCH (09:00)
[2021-06-25] MEDS ORDERED: ESCITALOPRAM OXALATE 10 MG TAB PO SCH (09:00)
[2021-06-25] MEDS ORDERED: DOCUSATE SODIUM 100 MG CAP PO SCH (09:00)
[2021-06-25] MEDS ORDERED: FENOFIBRATE 145 MG TAB PO SCH (09:00)
[2021-06-25] MEDS: CEFTRIAXONE 1 GM in SODIUM CHLORIDE 0.9% 50ML 50 ML IV SCH (09:00)
[2021-06-25] MEDS ORDERED: LORATADINE 10 MG TAB PO SCH (09:00)
[2021-06-25] MEDS ORDERED: SIMVASTATIN 40 MG TAB PO SCH (09:00)
[2021-06-25] MEDS ORDERED: SENNOSIDES 8.6 MG TAB PO SCH (09:00)
[2021-06-25] MEDS ORDERED: PANTOPRAZOLE SOD 40 MG TABEC PO SCH (09:00)
[2021-06-25] MEDS: HYDRALAZINE HCL 20 MG/ML VIAL IV PRN (11:35)
[2021-06-25 12:08] LABS: HEMATOCRIT 33.9 % (34.2-44.1); HEMOGLOBIN 10.9 g/dL (12.0-16.0)
[2021-06-25] MEDS ORDERED: METHYLPREDNISOLONE 4 MG TAB PO SCH (13:00)
[2021-06-25] MEDS ORDERED: MEDROL DOSEPAK PO (17:27)
[2021-06-25] MEDS ORDERED: [UNRECOGNIZED DRUG - OTHER] (17:28)
[2021-06-25] MEDS ORDERED: AUGMENTIN 500-1 EACH PO ×2 (17:29→17:32)
== END 2021-06-25 18:58 | disposition home or self-care (01) ==
LOC: ER 14:52 → ERHOLD 16:56 → MED/SURG2 19:48
PROVIDERS: ADMIT Internal Medicine; ATTEND Internal Medicine
DX: G62.9 Polyneuropathy, unspecified (principal); J18.9 Pneumonia, unspecified organism; D64.9 Anemia, unspecified; K92.2 Gastrointestinal hemorrhage, unspecified; Z20.822 Contact with and (suspected) exposure to COVID-19; F32.A Depression, unspecified; F41.9 Anxiety disorder, unspecified; E03.9 Hypothyroidism, unspecified; K21.9 Gastro-esophageal reflux disease without esophagitis; E78.5 Hyperlipidemia, unspecified; K58.9 Irritable bowel syndrome, unspecified; H35.30 Unspecified macular degeneration; Z91.81 History of falling; M48.54XA Collapsed vertebra, not elsewhere classified, thoracic region, initial encounter for fracture; G89.29 Other chronic pain; I10 Essential (primary) hypertension; Z88.1 Allergy status to other antibiotic agents; Z88.8 Allergy status to other drugs, medicaments and biological substances
CPT/HCPCS: 36415 ×2; 71045; 74176; 80053; 81001; 82607; 82728; 82746; 83540; 84443; 84466; 84484; 85014 ×2; 85018 ×2; 85025; 85610; 93005; 96361; 97139; 99284; C9113; G0378 ×2; J0360 ×2; J0456; J0696 ×2; J1200 ×2; J2405 ×2; J2930; J7030 ×2; J7050; J7509; S0164; U0002

== ENCOUNTER 2022-07-23 07:03 | Emergency (ER) | payer MEDICARE ==
[~2022-07-23] VITALS: Ht 162.6 cm; Wt 65.6 kg
[~2022-07-23 07:03] MED LIST changes: +AUGMENTIN 500-1 EACH PO; +MEDROL DOSEPAK PO; +[UNRECOGNIZED DRUG - OTHER]
[2022-07-23] MEDS ORDERED: LACTULOSE20 GM/30 M PO (08:03)
[2022-07-23] MEDS ORDERED: BUSPIRONE HCL10 MG PO (08:03)
[2022-07-23] MEDS ORDERED: BUMETANIDE1 MG PO (08:03)
[2022-07-23] MEDS ORDERED: SPIRONOLACTONE25 MG PO (08:03)
[2022-07-23] MEDS ORDERED: VITAMIN B-121000 MCG PO (08:03)
[2022-07-23] MEDS ORDERED: LORAZEPAM INJ 2 MG/ML VIAL ONE (09:43)
[2022-07-23] MEDS ORDERED: FAMOTIDINE 20 MG TAB ONE (09:54)
[2022-07-23] MEDS ORDERED: BACITRACIN ZINC 0.9GM TP ONE ×2 (09:54→10:00)
[2022-07-23] MEDS ORDERED: HYDROXYZINE HCL25 MG PO (09:55)
[2022-07-23] MEDS ORDERED: FAMOTIDINE 20 MG TAB PO ONE (10:00)
[2022-07-23] MEDS ORDERED: LORAZEPAM INJ 2 MG/ML VIAL IM ONE (10:00)
[2022-07-23 10:22] VITALS: O2SAT 97
== END 2022-07-23 10:22 | disposition home or self-care (01) ==
LOC: FSED 07:12
DX: L29.9 Pruritus, unspecified (principal); K74.60 Unspecified cirrhosis of liver; S51.812A Laceration without foreign body of left forearm, initial encounter; W18.39XA Other fall on same level, initial encounter; Y92.89 Other specified places as the place of occurrence of the external cause; D64.9 Anemia, unspecified; I10 Essential (primary) hypertension; E03.9 Hypothyroidism, unspecified
CPT/HCPCS: 80048; 80076; 81003; 85025; 85610; 96372; 99284; J2060

== ENCOUNTER 2023-07-04 12:02 | Inpatient (IN) | payer MEDICARE ==
[~2023-07-04] VITALS: Ht 315 cm; Wt 56.0 kg
[~2023-07-04 12:02] MED LIST changes: +BUMETANIDE1 MG PO; +BUSPIRONE HCL10 MG PO; +DIPHENHYDRAMINE HCL 25 MG CAP ONE; +HYDROXYZINE HCL25 MG PO; +LACTULOSE20 GM/30 M PO; +PANTOPRAZOLE SO40 MG PO; +PREDNISONE 20 MG TAB ONE; +PROPRANOLOL HCL10 MG PO; +SODIUM CHLORI1000 MG PO; +SPIRONOLACTONE25 MG PO
[2023-07-04] MEDS: DIPHENHYDRAMINE HCL 25 MG CAP PO ONE (12:30)
[2023-07-04] MEDS ORDERED: PREDNISONE 20 MG TAB ONE (12:30)
[2023-07-04] MEDS ORDERED: DIPHENHYDRAMINE HCL 25 MG CAP ONE (12:30)
[2023-07-04] MEDS: PREDNISONE 20 MG TAB PO SCH (12:30)
[2023-07-04 12:36] LABS: BASOPHILS % 0.4 % (0.0-1.0); EOSINOPHILS # (AUTO) 0.4 (0.0-0.4); EOSINOPHILS % 4.2 % (0.0-6.0); HEMATOCRIT 30.7 % (34.2-44.1); HEMOGLOBIN 10.7 g/dL (12.0-16.0); LYMPHOCYTES # (AUTO) 0.5 (1.0-3.2); LYMPHOCYTES % 5.6 % (18.0-39.1); MEAN CORPUSCULAR HEMOGLOBIN 29.3 pg (28-32); MEAN CORPUSCULAR HGB CONC 34.9 g/dL (31-35); MEAN CORPUSCULAR VOLUME 84.1 fL (81-99); MONOCYTES # (AUTO) 0.4 (0.2-0.8); MONOCYTES % 4.4 % (4.4-11.3); NEUTROPHILS % 84.9 % (38.7-80.0); PLATELET COUNT 112 x10e3/uL (140-360); RED BLOOD COUNT 3.65 x10e6/uL (3.6-5.1); RED CELL DISTRIBUTION WIDTH 16.2 % (11.7-14.4); WHITE BLOOD COUNT 8.26 x10e3/uL (4.8-10.8)
[2023-07-04 12:57] LABS: ALBUMIN 3.1 g/dL (3.5-5.0); ALBUMIN/GLOBULIN RATIO 0.6 (0.8-2.0); BILIRUBIN,TOTAL 0.3 mg/dL (0.2-1.2); CALCIUM 9.3 mg/dL (8.4-10.2); CREATININE, SERUM 1.44 mg/dL (0.57-1.11)
[2023-07-04 15:15] VITALS: BP 145/59; PULSE 79; RESP 18; TEMP 97.5; O2SAT 100
[2023-07-04 16:12] VITALS: BP 145/59; PULSE 79; RESP 18; TEMP 97.5; O2SAT 100
[2023-07-04 16:14] VITALS: BP 145/59; PULSE 79; RESP 18; TEMP 97.5; O2SAT 100
[2023-07-04 17:24] LABS: BLOOD UREA NITROGEN 52 mg/dL (7-26); GLUCOSE 104 mg/dL (74-118); OSMOLALITY,SERUM 268 mOsm/kg (278-305); SODIUM 126 mmol/L (136-145)
[2023-07-04] MEDS ORDERED: SPIRONOLACTONE50 MG (17:25)
[2023-07-04] MEDS ORDERED: PRESERVISION A1 EAC2 (17:25)
[2023-07-04] MEDS ORDERED: METOPROLOL TART50 MG PO (17:25)
[2023-07-04 18:02] LABS: ANION GAP 17.4 mmol/L (8-16); CALCIUM 9.2 mg/dL (8.4-10.2); CREATININE, SERUM 1.25 mg/dL (0.57-1.11)
[2023-07-04 18:05] LABS: POTASSIUM 5.4 mmol/L (3.5-5.1)
[2023-07-04 20:00] VITALS: BP 158/60; PULSE 87; RESP 16; TEMP 97.3; O2SAT 100
[2023-07-04] MEDS: LACTULOSE SYRUP 20 GM/30 ML UDC PO SCH (21:13)
[2023-07-04] MEDS: SOD POLYSTYRENE SULFONATE SUSP 15 GM/60 ML BTL PO ONE (21:13)
[2023-07-04] MEDS: SODIUM CHLORIDE 0.9% 1000ML 1,000 ML IV SCH (21:14)
[2023-07-04 21:44] VITALS: BP 158/60; PULSE 87; RESP 16; TEMP 97.3; O2SAT 100
[2023-07-05] VITALS (9 sets, daily range): BP systolic 139–176; BP diastolic 58–79; PULSE 74–84; RESP 16–18; TEMP 97.5–98.4; O2SAT 97–100
[2023-07-05] MEDS: DIPHENHYDRAMINE HCL 25 MG CAP PO PRN ×2 (03:51→15:18)
[2023-07-05] MEDS ORDERED: ACETAMINOPHEN 325 MG TAB PO PRN (05:00)
[2023-07-05 05:34] LABS: HEMATOCRIT 27.5 % (34.2-44.1); HEMOGLOBIN 9.2 g/dL (12.0-16.0); LYMPHOCYTES # (AUTO) 0.4 (1.0-3.2); LYMPHOCYTES % 5.5 % (18.0-39.1); MEAN CORPUSCULAR HEMOGLOBIN 28.5 pg (28-32); MEAN CORPUSCULAR HGB CONC 33.5 g/dL (31-35); MEAN CORPUSCULAR VOLUME 85.1 fL (81-99); MONOCYTES # (AUTO) 0.3 (0.2-0.8); NEUTROPHILS # (AUTO) 6.3 (2.1-6.9); NEUTROPHILS % 90.1 % (38.7-80.0); PLATELET COUNT 92 x10e3/uL (140-360); RED BLOOD COUNT 3.23 x10e6/uL (3.6-5.1); RED CELL DISTRIBUTION WIDTH 15.8 % (11.7-14.4); WHITE BLOOD COUNT 6.94 x10e3/uL (4.8-10.8)
[2023-07-05 05:49] LABS: ALBUMIN 2.8 g/dL (3.5-5.0); ALBUMIN/GLOBULIN RATIO 0.6 (0.8-2.0); ANION GAP 13.9 mmol/L (8-16); BILIRUBIN,TOTAL 0.3 mg/dL (0.2-1.2); CREATININE, SERUM 1.09 mg/dL (0.57-1.11); MAGNESIUM 2.1 MG/DL (1.3-2.1); POTASSIUM 4.9 mmol/L (3.5-5.1); TOTAL PROTEIN 7.3 g/dL (6.5-8.1)
[2023-07-05] MEDS: LEVOTHYROXINE SODIUM 50 MCG TAB PO SCH (08:22)
[2023-07-05] MEDS: DICYCLOMINE HCL 10 MG CAP PO SCH (08:23)
[2023-07-05] MEDS: BUSPIRONE HCL 10 MG TABLET PO SCH (08:23)
[2023-07-05] MEDS: ASPIRIN 81 MG CHEW TAB PO SCH (08:23)
[2023-07-05] MEDS: ESCITALOPRAM OXALATE 10 MG TAB PO SCH (08:24)
[2023-07-05] MEDS: BUMETANIDE 1 MG TAB PO SCH (08:24)
[2023-07-05] MEDS: METOPROLOL TARTRATE 50 MG TAB PO SCH (08:31)
[2023-07-05] MEDS ORDERED: METHYLPREDNISOLONE SOD SUCC 40 MG/ML VIAL 1ML IV SCH (09:00)
[2023-07-05] MEDS ORDERED: PREDNISONE 20 MG TAB ONE (10:51)
[2023-07-05] MEDS ORDERED: BUSPIRONE HCL 10 MG TABLET ONE (10:51)
[2023-07-05] MEDS ORDERED: SODIUM CHLORIDE 0.9% 1000 ML BAG ONE (10:51)
[2023-07-05] MEDS ORDERED: BUMETANIDE 1 MG TAB ONE (10:51)
[2023-07-05] MEDS ORDERED: DIPHENHYDRAMINE HCL 25 MG CAP ONE (10:51)
[2023-07-05] MEDS ORDERED: METOPROLOL TARTRATE 50 MG TAB ONE (10:51)
[2023-07-05] MEDS ORDERED: ESCITALOPRAM OXALATE 10 MG TAB ONE (10:51)
[2023-07-05] MEDS ORDERED: SOD POLYSTYRENE SULFONATE SUSP 15 GM/60 ML BTL ONE (10:51)
[2023-07-05] MEDS ORDERED: DICYCLOMINE HCL 10 MG CAP ONE (10:51)
[2023-07-05] MEDS ORDERED: LEVOTHYROXINE SODIUM 50 MCG TAB ONE (10:51)
[2023-07-05] MEDS ORDERED: ASPIRIN 81 MG CHEW TAB ONE (10:51)
[2023-07-05] MEDS ORDERED: LACTULOSE SYRUP 20 GM/30 ML UDC ONE (10:51)
[2023-07-05] MEDS: SODIUM CHLORIDE 1 GM TAB PO SCH (15:18)
[2023-07-05 15:33] LABS: CLARITY,URINE CLEAR (CLEAR); COLOR,URINE YELLOW (YELLOW)
[2023-07-05 15:34] LABS: BILIRUBIN,URINE NEGATIVE (NEGATIVE); GLUCOSE, URINE NEGATIVE (NEGATIVE); KETONES,URINE NEGATIVE (NEGATIVE); LEUKOCYTE ESTERASE ,URINE NEGATIVE (NEGATIVE); NITRITE,URINE NEGATIVE (NEGATIVE); PH,URINE 5.5 (5 - 7); PROTEIN,URINE DIPSTICK NEGATIVE (NEGATIVE); URINE UROBILINOGEN 0.2 mg/dL (0.2 - 1)
[2023-07-05 15:42] LABS: BACTERIA,URINE MODERATE /HPF; EPITHELIAL CELLS,URINE FEW /LPF; RENAL EPITHELIAL CELLS,URINE FEW; WBC,URINE (MAN) 0-5 /HPF (0-5)
[2023-07-05] MEDS: HYDRALAZINE HCL 20 MG/ML VIAL IV PRN (22:07)
[2023-07-06] VITALS (7 sets, daily range): BP systolic 123–166; BP diastolic 48–64; PULSE 63–82; RESP 18–20; TEMP 97.6–98.6; O2SAT 100
[2023-07-06 05:35] LABS: EOSINOPHILS % 0.3 % (0.0-6.0); HEMATOCRIT 26.7 % (34.2-44.1); LYMPHOCYTES # (AUTO) 0.4 (1.0-3.2); LYMPHOCYTES % 5.7 % (18.0-39.1); MEAN CORPUSCULAR HEMOGLOBIN 28.4 pg (28-32); MEAN CORPUSCULAR HGB CONC 33.7 g/dL (31-35); MEAN CORPUSCULAR VOLUME 84.2 fL (81-99); MONOCYTES # (AUTO) 0.6 (0.2-0.8); MONOCYTES % 7.6 % (4.4-11.3); NEUTROPHILS # (AUTO) 6.7 (2.1-6.9); NEUTROPHILS % 86.1 % (38.7-80.0); PLATELET COUNT 94 x10e3/uL (140-360); RED BLOOD COUNT 3.17 x10e6/uL (3.6-5.1); RED CELL DISTRIBUTION WIDTH 16.2 % (11.7-14.4); WHITE BLOOD COUNT 7.75 x10e3/uL (4.8-10.8)
[2023-07-06 06:11] LABS: ALBUMIN 2.6 g/dL (3.5-5.0); ALBUMIN/GLOBULIN RATIO 0.6 (0.8-2.0); BILIRUBIN,TOTAL 0.3 mg/dL (0.2-1.2); CALCIUM 8.7 mg/dL (8.4-10.2); CREATININE, SERUM 0.84 mg/dL (0.57-1.11); MAGNESIUM 1.7 MG/DL (1.3-2.1); TOTAL PROTEIN 6.8 g/dL (6.5-8.1)
[2023-07-06] MEDS ORDERED: LACTULOSE SYRUP 20 GM/30 ML UDC ONE ×2 (08:03→19:27)
[2023-07-06] MEDS ORDERED: PREDNISONE 20 MG TAB ONE ×2 (08:03→19:27)
[2023-07-06] MEDS ORDERED: LEVOTHYROXINE SODIUM 50 MCG TAB ONE ×2 (08:04→19:27)
[2023-07-06] MEDS ORDERED: DICYCLOMINE HCL 10 MG CAP ONE ×3 (08:04→19:27)
[2023-07-06] MEDS ORDERED: METOPROLOL SUCCINATE 50 MG TAB XL ONE ×2 (08:05→19:27)
[2023-07-06] MEDS ORDERED: ASPIRIN 81 MG CHEW TAB ONE ×2 (08:06→19:27)
[2023-07-06] MEDS ORDERED: SODIUM CHLORIDE 1 GM TAB ONE ×3 (08:07→19:27)
[2023-07-06] MEDS ORDERED: SODIUM CHLORIDE 1 GM TAB PO SCH (11:30)
[2023-07-06] MEDS ORDERED: PREDNISONE50 MG PO (15:18)
[2023-07-06] MEDS ORDERED: CALAMINE LOTIO177 ML TP (15:18)
[2023-07-06] MEDS: CALAMINE LOTION 4 OZ BOTTLE TP SCH (16:33)
[2023-07-06] MEDS ORDERED: DICYCLOMINE HCL 20 MG TAB ONE (16:48)
[2023-07-06] MEDS ORDERED: METOPROLOL TARTRATE 25 MG TAB ONE (16:48)
[2023-07-06] MEDS ORDERED: SODIUM BICARBONATE 650 MG TAB ONE (16:48)
[2023-07-06] MEDS: SODIUM CHLORIDE 1 GM TAB PO SCH (17:10)
[2023-07-06] MEDS: SODIUM BICARBONATE 650 MG TAB PO SCH (17:10)
[2023-07-06] MEDS ORDERED: METOPROLOL TARTRATE 50 MG TAB ONE (17:16)
[2023-07-06] MEDS: PANTOPRAZOLE SOD 40 MG TABEC PO ONE (18:25)
[2023-07-06] MEDS ORDERED: PANTOPRAZOLE SOD 40 MG TABEC ONE (18:26)
[2023-07-06] MEDS ORDERED: DIPHENHYDRAMINE HCL 25 MG CAP ONE (19:27)
[2023-07-06] MEDS ORDERED: SODIUM CHLORIDE 0.9% 1000 ML BAG ONE (19:27)
[2023-07-06] MEDS ORDERED: HYDRALAZINE HCL 20 MG/ML VIAL ONE (19:27)
[2023-07-06] MEDS ORDERED: LACTULOSE SYRUP 20 GM/30 ML UDC PO ONE (21:51)
[2023-07-07] VITALS (7 sets, daily range): BP systolic 153–177; BP diastolic 57–76; PULSE 63–82; RESP 16–18; TEMP 97.1–98.9; O2SAT 100
[2023-07-07 06:22] LABS: EOSINOPHILS % 0.3 % (0.0-6.0); HEMATOCRIT 24.3 % (34.2-44.1); HEMOGLOBIN 8.3 g/dL (12.0-16.0); LYMPHOCYTES # (AUTO) 0.5 (1.0-3.2); LYMPHOCYTES % 7.3 % (18.0-39.1); MEAN CORPUSCULAR HGB CONC 34.2 g/dL (31-35); MONOCYTES # (AUTO) 0.7 (0.2-0.8); MONOCYTES % 9.8 % (4.4-11.3); NEUTROPHILS # (AUTO) 5.7 (2.1-6.9); NEUTROPHILS % 82.3 % (38.7-80.0); PLATELET COUNT 102 x10e3/uL (140-360); RED BLOOD COUNT 2.86 x10e6/uL (3.6-5.1); RED CELL DISTRIBUTION WIDTH 16.4 % (11.7-14.4); WHITE BLOOD COUNT 6.95 x10e3/uL (4.8-10.8)
[2023-07-07 06:54] LABS: ANION GAP 12.2 mmol/L (8-16); CALCIUM 8.7 mg/dL (8.4-10.2); CREATININE, SERUM 0.79 mg/dL (0.57-1.11); POTASSIUM 4.2 mmol/L (3.5-5.1)
[2023-07-07] MEDS ORDERED: PREDNISONE 20 MG TAB ONE (09:12)
[2023-07-07] MEDS ORDERED: LEVOTHYROXINE SODIUM 50 MCG TAB ONE (09:12)
[2023-07-07] MEDS ORDERED: LACTULOSE SYRUP 20 GM/30 ML UDC ONE (09:13)
[2023-07-07] MEDS ORDERED: DICYCLOMINE HCL 10 MG CAP ONE (09:13)
[2023-07-07] MEDS ORDERED: METOPROLOL TARTRATE 50 MG TAB ONE (09:13)
[2023-07-07] MEDS ORDERED: ASPIRIN 81 MG CHEW TAB ONE (09:13)
[2023-07-07] MEDS ORDERED: SODIUM BICARBONATE 650 MG TAB ONE (09:14)
[2023-07-07] MEDS ORDERED: PANTOPRAZOLE SOD 40 MG TABEC ONE (09:14)
[2023-07-07] MEDS ORDERED: SODIUM CHLORIDE 1 GM TAB ONE ×2 (09:14→10:06)
[2023-07-07] MEDS: PANTOPRAZOLE SOD 40 MG TABEC PO SCH (09:43)
[2023-07-07] MEDS ORDERED: DIPHENHYDRAMINE HCL 25 MG CAP ONE ×2 (09:56→10:05)
[2023-07-07] MEDS ORDERED: SODIUM CHLORI1000 MG PO (09:58)
[2023-07-07] MEDS ORDERED: BUMETANIDE 1 MG TAB ONE (10:07)
[2023-07-07] MEDS: BUMETANIDE 1 MG TAB PO ONE (10:07)
[2023-07-07] MEDS: SODIUM CHLORIDE 1 GM TAB PO SCH (10:07)
[2023-07-07] MEDS ORDERED: TRIAMCINOLONE 0.1% OINTMENT 15 GM TUBE TP PRN (17:15)
[2023-07-07] MEDS ORDERED: PATADAY2.5 ML OP (17:32)
[2023-07-07] MEDS ORDERED: DOXEPIN HCL10 MG PO (17:34)
[2023-07-07] MEDS ORDERED: TRIAMCINOLONE A15 G3 TP (17:34)
[2023-07-07] MEDS ORDERED: VENLAFAXINE HCL75 MG PO (17:34)
[2023-07-07] MEDS: VENLAFAXINE HCL 75 MG CAPCR PO SCH (18:00)
[2023-07-07] MEDS: OLOPATADINE 5 ML BTL OP SCH (19:27)
[2023-07-07] MEDS ORDERED: DOXEPIN HCL 10 MG CAP PO SCH (21:00)
== END 2023-07-07 19:38 | disposition home or self-care (01) | DRG 641 ==
LOC: ER 12:20 → ERHOLD 13:41 → MED/SURG2 15:03
PROVIDERS: ADMIT Internal Medicine; ATTEND Internal Medicine
DX: E87.1 Hypo-osmolality and hyponatremia (principal); K55.9 Vascular disorder of intestine, unspecified; N17.9 Acute kidney failure, unspecified; K21.9 Gastro-esophageal reflux disease without esophagitis; K58.9 Irritable bowel syndrome, unspecified; Z88.8 Allergy status to other drugs, medicaments and biological substances; Z91.041 Radiographic dye allergy status; I12.9 Hypertensive chronic kidney disease with stage 1 through stage 4 chronic kidney disease, or unspecified chronic kidney disease; N18.9 Chronic kidney disease, unspecified; Z79.82 Long term (current) use of aspirin; Z79.890 Hormone replacement therapy; Z11.52 Encounter for screening for COVID-19; K70.30 Alcoholic cirrhosis of liver without ascites; F32.A Depression, unspecified; E03.9 Hypothyroidism, unspecified; F10.21 Alcohol dependence, in remission; L23.9 Allergic contact dermatitis, unspecified cause; D64.9 Anemia, unspecified; D69.6 Thrombocytopenia, unspecified; K08.89 Other specified disorders of teeth and supporting structures; E87.5 Hyperkalemia; Z87.891 Personal history of nicotine dependence
CPT/HCPCS: 36415; 76770; 80048; 80053; 80320; 81001; 82140; 82947; 83735; 83930; 83935; 84295; 84300; 84443; 84520; 84550; 85025; 99284; J0360; J7030; J7512; U0002